=== PATIENT | male | born 1940 | race Caucasian/White ===

== ENCOUNTER 2016-11-10 22:21 | Emergency (ER) | payer MEDICARE, OTHER ==
[2016-11-10 22:31] VITALS: TEMP 98.2; BMI 29.4
[2016-11-10] MEDS ORDERED: NS 1,000 ML IV ONE (22:33)
[2016-11-10] MEDS ORDERED: ONDANSETRON HCL 4 MG/2 ML VIAL IV ONE (22:36)
--- NOTE | 2016-11-10 22:38 | EDPRACDOC ---
- General Information Chief Complaint: Generalized Weakness Stated Complaint: SICK ALL OVER NAUSEATED CP Time Seen by Provider: 11/10/16 22:32 Information Source: Patient Mode Of Arrival: Car Home Medications: Home Medications Amlodipine [Norvasc] 10 mg PO HS 11/27/12 Lorazepam [Ativan] 0.5 mg PO BID PRN 11/27/12 Omeprazole 20 mg PO BID 11/27/12 Tramadol HCl 100 mg PO QID PRN 11/27/12 Atorvastatin Calcium [Lipitor] 80 mg PO HS 07/16/14 Cholecalciferol [Vitamin D3 (cholecalciferol)] 2,000 units PO DAILY 07/16/14 Finasteride [Proscar] 5 mg PO DAILY 07/16/14 MetFORMIN (Immediate Release) [GLUCOPHAGE Immed Release] 500 mg PO DAILY Albuterol Sulfate [Ventolin] 2.5 mg NEB Q6H PRN 04/07/15 Albuterol/Ipratropium Neb [Duoneb] 3 ml NEB Q6H PRN 04/07/15 Budesonide/Formoterol [Symbicort 160-4.5 Mcg Inhaler] 2 inh INH BID 04/07/15 Gabapentin [Neurontin] 400 mg PO .QAM & NOON 04/07/15 Gabapentin [Neurontin] 800 mg PO HS 04/07/15 Lisinopril [Prinivil] 40 mg PO DAILY 04/07/15 Mirtazapine [Remeron] 45 mg PO HS 04/07/15 Nebulizer [Erapid Nebulizer] 1 each MC .UNKNOWN 04/07/15 Tamsulosin HCl [Flomax] 0.4 mg PO DAILY 04/07/15 Venlafaxine HCl ER [Effexor Xr] 300 mg PO QAM 04/07/15 Hydrocortisone [Anusol Hc] 25 mg PA BID #20 supp 05/08/15 Polyethylene Glycol 3350 [Miralax] 17 gm PO DAILY #30 powd.pack 05/08/15 Ondansetron [Zofran Odt] 4 mg PO Q6H PRN #10 tab.rapdis 11/11/16 Allergies/Adverse Reactions: Allergies Allergy/AdvReac Type Severity Reaction Status Date / Time simvastatin Allergy Unknown Verified 11/10/16 22:31 codeine [Codeine] AdvReac Unknown Headache Verified 11/10/16 22:31 ANALGESICS Allergy Unknown Uncoded 11/10/16 22:31 OPIOIDS Allergy Unknown Uncoded 11/10/16 22:31 - History of Present Illness Onset: 2 days Exact Onset of Symptoms: Unknown HPI: PT SAID THAT HE'S BEEN FEELING SICK FOR THE PAST 2 DAYS. HE SAID THAT NOTHING HURTS, BUT HE DOES NOT FEEL WELL. PT HAS HAD DIARRHEA AND NAUSEA. HE THREW UP ONCE. Symptoms Started: Reports: Gradually Symptoms Description: Worsening Weakness: Bilateral: Generalized Symptoms: Reports: Weak Associated signs and symptoms:: Reports: Diarrhea, Nausea ED Past Medical History - Patient Medical History Neurological History: Denies: Cerebrovascular Accident, Seizures, Dementia, [place] Syndrome, Parkinson's, Multiple Sclerosis Cardiac History: Reports: Hypertension, Hypercholesterolemia. Denies: Congestive Heart Failure, Heart Attack, Cardiac Catheterization, CABG, Pacemaker , Syncope Respiratory History: Reports: COPD. Denies: Asthma, Pneumonia, Emphysema, Pulmonary Embolism GI/ History: Reports: Gastroesophageal Reflux. Denies: Ulcer, Diverticulosis , Pancreatitis Psychological History: Denies: Depression, Anxiety, Bipolar Disorder Systemic History: Reports: Diabetes Surgical History: Reports: Appendectomy, Cholecystectomy, Other (Neck surgery). Denies: CABG, Angioplasty, Cardiac Catheterization, Hernia Surgery, Tonsillectomy/Adnoidectomy - Family Medical History Reports: Hypertension, Diabetes, Cancer, Cardiac Disorders. Denies: Stroke - Social Medical History Smoking Status: Light tobacco smoker (less than 5/day) ETOH: None Substance Abuse: None Lives In: Home EDM Review of Systems - Review of Systems ROS Negative Except as Marked: Yes All systems reviewed and were negative except as marked Gastrointestinal: Diarrhea, Nausea, Pain - Physical Exam Constitutional: Alert (Awake), No apparent distress Oriented to: Time, Person, Place Last recorded Vital Signs: Last Vital Signs Temp 98.2 F 11/10/16 22:26 Pulse 103 11/10/16 22:26 Resp 20 11/10/16 22:26 BP 177/83 11/10/16 22:26 Pulse Ox 97 11/10/16 22:26 Oxygen Pulse Oxygen Saturation 97 O2 Device Room Air Oxygen Flow Rate Fraction of Inspired Oxygen ( FIO2) - HEENT Head: Normal ( normocephalic) Eye Exam: Normal (PERRL, EOMI, Sclera white) Oropharynx: Normal (Pharynx:Moist without exudate,Gums-no swelling) ENT EAC: Normal TMJ: Normal Nose: No Symptoms Reported (septum midline) Neck: Normal (FROM, trachea at midline) - Respiratory/Cardiovascular Respiratory: Normal - CTA Cardiovascular: Tachycardia - GI Auscultation: Normal (NABS) Palpation: Normal (Soft,No rebound or guarding, non distended) Tenderness: Non tender Nova's Sign: Negative - Musculoskeletal Back: Normal (Non-Tender) Extremities: Normal (Normal tone, Pulses 2+ No cyanosis or edema, FROM) - Integumentary Skin: Normal, Warm, Dry Lymphatics: Normal (no adenopathy) - Neurologic Memory Impaired: Normal Motor Function: Normal (Normal tone, Pulses 2+ No cyanosis or edema, FROM) Cranial Nerve: Normal (CN II-X11 intact sensation, strength 5/5) Cerebellar: Normal Mood Description: Normal Perception: Normal - Results 11/10/16 23:11 11/10/16 23:11 - EKG EKG #1 EKG Time: 22:45 -: Yes EKG interpreted by me Rate: bpm: 90 [place]: Normal Rhythm: NSR Block: None Hypertrophy: None ST: Normal Comparison: 04/07/15 - Diagnostic Imaging Chest Image interpreted by: Radiologist No acute cardiopulmonary process seen. Head Image interpreted by: Radiologist No acute intracranial abnormalities. Chronic atrophy and small vessel ischemic changes. - Additional Information PT C/O ABD PAIN AND TOLD THE NURSE THAT HE WAS GOING TO . PT GIVEN ATIVAN AND IS FEELING BETTER AND WANTS TO GO HOME. CT ABD/PELVIS/CHEST: No acute process demonstrated in the chest, abdomen, or pelvis. Emphysematous changes in the lungs. Fatty infiltration of the pancreas. Abdominal aortic aneurysm measuring 4 cm AP dimension, unchanged since previous study. Enlarged prostate gland. Mild anterior compression of T9 vertebra with Schmorl's nodes, demonstrating progression since prior study. Decision Time to Discharge: 01:21 - Departure Yes I personally saw and evaluated the patient. Disposition: Home Condition: Fair Final Diagnosis: Nausea and vomiting, Dehydration Instructions: Weakness (General) Education/Counseling Given To: Patient Education/Counseling Given Regarding: Diagnosis, Treatment, Follow Up Referrals: None,No Provider [Primary Care Provider] - One Week Prescriptions: New Ondansetron [Zofran Odt] 4 mg PO Q6H PRN #10 tab.rapdis PRN Reason: Nausea/Vomiting No Action Tramadol HCl 100 mg PO QID PRN PRN Reason: Pain Omeprazole 20 mg PO BID Lorazepam [Ativan] 0.5 mg PO BID PRN PRN Reason: PANIC ATTACKS Amlodipine [Norvasc] 10 mg PO HS MetFORMIN (Immediate Release) [GLUCOPHAGE Immed Release] 500 mg PO DAILY Finasteride [Proscar] 5 mg PO DAILY Cholecalciferol [Vitamin D3 (cholecalciferol)] 2,000 units PO DAILY Atorvastatin Calcium [Lipitor] 80 mg PO HS Venlafaxine HCl ER [Effexor Xr] 300 mg PO QAM Tamsulosin HCl [Flomax] 0.4 mg PO DAILY Mirtazapine [Remeron] 45 mg PO HS Albuterol/Ipratropium Neb [Duoneb] 3 ml NEB Q6H PRN PRN Reason: Shortness Of Breath Nebulizer [Erapid Nebulizer] 1 each MC .UNKNOWN Budesonide/Formoterol [Symbicort 160-4.5 Mcg Inhaler] 2 inh INH BID Albuterol Sulfate [Ventolin] 2.5 mg NEB Q6H PRN PRN Reason: BREATHING Lisinopril [Prinivil] 40 mg PO DAILY Gabapentin [Neurontin] 800 mg PO HS Gabapentin [Neurontin] 400 mg PO .QAM & NOON Polyethylene Glycol 3350 [Miralax] 17 gm PO DAILY #30 powd.pack Hydrocortisone [Anusol Hc] 25 mg PA BID #20 supp Additional Instructions: HOLD METFORMIN FOR 2 DAYS
--- NOTE | 2016-11-10 23:05 | DIRPT ---
CLINICAL DATA: Acute onset of worsening generalized weakness, diarrhea, nausea, vomiting and shortness of breath. Initial encounter. EXAM: PORTABLE CHEST 1 VIEW COMPARISON: Chest radiograph performed 04/08/2015 FINDINGS: The lungs are well-aerated and clear. There is no evidence of focal opacification, pleural effusion or pneumothorax. The cardiomediastinal silhouette is within normal limits. No acute osseous abnormalities are seen. IMPRESSION: No acute cardiopulmonary process seen. Electronically Signed By: Cornelius Jurado M.D. On: 11/10/2016 23:02
[2016-11-10 23:17] LABS: AUTOMATED BASOPHIL 1.4 % (0-2); AUTOMATED EOSINOPHIL 2.6 % (0-5); AUTOMATED LYMPH 20.4 % (17-44); AUTOMATED MONOCYTE 8.1 % (3-10); AUTOMATED NEUTROPHIL 67.5 % (45-76); MPV 8.7 fL (7.4-10.4)
[2016-11-10 23:22] LABS: LEUKOCYTES/URINE NEG (NEGATIVE); NITRITE/URINE NEG (NEGATIVE); RBC/URINE 0-2 (0-2); URINE OCCULT BLOOD NEG (NEG/TRACE); WBC/URINE 0-2 (0-2)
[2016-11-10 23:28] LABS: BLOOD UREA NITROGEN 21 MG/DL (9-20); CALCIUM 9.4 MG/DL (8.4-10.2); CALCULATED OSMOLALITY 273 MOs/Kg (270-290); CHLORIDE 101 mEq/L (98-107); GLUCOSE 136 MG/DL (70-99); SODIUM LEVEL 139 mEq/L (137-146); TOTAL PROTEIN 7.5 G/DL (6.3-8.2)
[2016-11-10 23:32] LABS: PARTIAL THROMB. TIME 27.3 SEC (22-35)
--- NOTE | 2016-11-10 23:41 | DIRPT ---
CLINICAL DATA: Headache. Weakness, nausea, and vertigo for 2 days. History of hypertension, COPD, diabetes, appendectomy, and cholecystectomy. EXAM: CT HEAD WITHOUT CONTRAST TECHNIQUE: Contiguous axial images were obtained from the base of the skull through the vertex without intravenous contrast. COMPARISON: 07/16/2014 FINDINGS: Diffuse cerebral atrophy. Ventricular dilatation consistent with central atrophy. Low-attenuation changes throughout the deep white matter consistent small vessel ischemia. Parenchymal pattern is unchanged since previous study. No mass effect or midline shift. No abnormal extra-axial fluid collections. Woo-white matter junctions are distinct. Basal cisterns are not effaced. No evidence of acute intracranial hemorrhage. No depressed skull fractures. Visualized paranasal sinuses and mastoid air cells are not opacified. Vascular calcifications. IMPRESSION: No acute intracranial abnormalities. Chronic atrophy and small vessel ischemic changes. Electronically Signed By: Justin Beckman M.D. On: 11/10/2016 23:38
[2016-11-10] MEDS ORDERED: Pharmacy Review for Metformin - IV Contrast Given SCH (23:45)
[2016-11-11] MEDS ORDERED: LORAZEPAM 2 MG/ML VIAL IV ONE (00:04)
--- NOTE | 2016-11-11 01:20 | DIRPT ---
CLINICAL DATA: Pain. Weakness, nausea, and shortness of breath. History of abdominal aortic aneurysm. EXAM: CT CHEST, ABDOMEN AND PELVIS WITHOUT CONTRAST TECHNIQUE: Multidetector CT imaging of the chest, abdomen and pelvis was performed following the standard protocol without IV contrast. COMPARISON: CT abdomen and pelvis 01/07/2014 FINDINGS: CT CHEST FINDINGS Mediastinum/Lymph Nodes: Normal heart size. Normal caliber thoracic aorta. No aortic aneurysm or dissection. Calcification of the coronary arteries and aorta. Visualized central pulmonary arteries demonstrate no filling defects suggesting no evidence of large central pulmonary embolus. Scattered lymph nodes in the mediastinum are not abnormally enlarged. Esophagus is mostly decompressed. Lungs/Pleura: Evaluation of lungs is limited due to motion artifact. Focal emphysematous changes most prominent in the right lung. Focal areas of scarring in the right lung. No consolidation or airspace disease. Airways appear patent. No pleural effusions. No pneumothorax. Musculoskeletal: No chest wall mass or suspicious bone lesions identified. CT ABDOMEN PELVIS FINDINGS Hepatobiliary: Surgical absence of the gallbladder. No bile duct dilatation. Liver appears normal. Pancreas: Diffuse fatty infiltration of the pancreas. No pancreatic ductal dilatation or inflammatory changes. Spleen: Within normal limits in size. Adrenals/Urinary Tract: No evidence of urolithiasis or hydronephrosis. No definite mass visualized on this un-enhanced exam. Stomach/Bowel: No evidence of obstruction, inflammatory process, or abnormal fluid collections. Appendix is not identified. Vascular/Lymphatic: Calcification of the abdominal aorta and branch vessels. Abdominal aortic aneurysm measuring 4 cm AP dimension. No significant change since previous study. Mural thrombus is present. Inferior vena cava and retroperitoneal lymph nodes are unremarkable. Reproductive: Enlarged prostate gland measuring 5.3 cm diameter. Other: None. Musculoskeletal: Mild anterior compression of T9 vertebra with Schmorl's node. There is progression since the previous study. IMPRESSION: No acute process demonstrated in the chest, abdomen, or pelvis. Emphysematous changes in the lungs. Fatty infiltration of the pancreas. Abdominal aortic aneurysm measuring 4 cm AP dimension, unchanged since previous study. Enlarged prostate gland. Mild anterior compression of T9 vertebra with Schmorl's nodes, demonstrating progression since prior study. Electronically Signed By: Justin Beckman M.D. On: 11/11/2016 01:17
[2016-11-11 01:50] VITALS: BP 138/69; PULSE 90
== END 2016-11-11 01:50 | disposition home or self-care (01) ==
LOC: ED 22:21
DX: R11.2 Nausea with vomiting, unspecified (principal); E86.0 Dehydration; R51 Headache
CPT/HCPCS: 36415; 70450; 71010; 71260; 74177; 80053; 81001; 84484; 85025; 85610; 85730; 93005; 96361; 96374; 96375; 99285; A9698; J2060; J2405